=== PATIENT | male | born 1990 | race Caucasian/White ===

== ENCOUNTER 2023-10-05 08:01 | Emergency (ER) | payer SELFPAY ==
[~2023-10-05] VITALS: Ht 177.8 cm; Wt 78.0 kg
[2023-10-05 08:03] VITALS: TEMP 97.6; O2SAT 99
[2023-10-05] MEDS: CARVEDILOL 12.5MG TABLET PO ONE (08:15)
[2023-10-05] MEDS: NIFEDIPINE 10MG CAPSULE PO ONE (08:15)
[2023-10-05] MEDS ORDERED: CARV12.545 MT (08:16)
[2023-10-05] MEDS ORDERED: NIFE20CA MT (08:16)
[2023-10-05 08:35] VITALS: BP 160/100; PULSE 88; RESP 17
== END 2023-10-05 08:45 | disposition home or self-care (01) ==
LOC: ER 08:01
DX: I10 Essential (primary) hypertension (principal); R00.2 Palpitations; I48.91 Unspecified atrial fibrillation
CPT/HCPCS: 99283

== ENCOUNTER 2023-10-09 12:52 | Emergency (ER) | payer MEDICAID ==
[~2023-10-09] VITALS: Ht 175.3 cm; Wt 78.0 kg
[~2023-10-09 12:52] MED LIST: CARV12.545 MT; NIFE20CA MT
[2023-10-09 13:06] VITALS: BP 138/85; PULSE 98; RESP 16; TEMP 98.9; O2SAT 100
== END 2023-10-09 18:06 | disposition home or self-care (01) ==
LOC: ER 12:52
DX: Z76.89 Persons encountering health services in other specified circumstances (principal); Z53.21 Procedure and treatment not carried out due to patient leaving prior to being seen by health care provider
CPT/HCPCS: 99281